=== PATIENT | female | born 1990 | race Caucasian/White ===

== ENCOUNTER 2020-05-08 15:04 | Outpatient (REF) | payer OTHER, SELFPAY ==
[2020-05-09 09:01] LABS: BV Int Neg Control Negative (Negative); BV Int Pos Control Positive (Positive)
[2020-05-09 10:27] LABS: C. trachomatis RNA TMA NOT DETECTED (NOT DETECTED); N. gonorrhoeae RNA TMA NOT DETECTED (NOT DETECTED)
== END 2020-05-08 15:05 | disposition home or self-care (01) ==
LOC: HO.LAB 15:04
PROVIDERS: PCP Internal Medicine; Visit Provider Obstetrics & Gynecology
DX: R87.612 Low grade squamous intraepithelial lesion on cytologic smear of cervix (LGSIL) (principal); R87.810 Cervical high risk human papillomavirus (HPV) DNA test positive
CPT/HCPCS: 36415; 57454; 87480; 87491; 87510; 87591; 87660; 88305

== ENCOUNTER 2020-09-14 12:08 | Outpatient (REF) | payer OTHER, SELFPAY ==
[2020-09-16 08:32] LABS: ~Hepatitis B Surface Antibody REACTIVE (Nonreactive)
[2020-09-16 17:52] LABS: Rubella IgG Antibody 6.07 Index
== END 2020-09-14 12:09 | disposition home or self-care (01) ==
LOC: HO.HMGCLDS 12:08
PROVIDERS: PCP Internal Medicine; Visit Provider Internal Medicine
DX: Z00.00 Encounter for general adult medical examination without abnormal findings (principal)
CPT/HCPCS: 36415; 86706; 86735; 86762; 86765; 86787

== ENCOUNTER 2020-09-16 09:03 | Outpatient (REF) | payer OTHER, SELFPAY ==
[2020-09-19 18:52] LABS: TS Negative Control Passed; TS Panel A 0; TS Panel B 0; TS Positive Control Passed; TSpotTB Negative (SeeBelow)
== END 2020-09-16 09:04 | disposition home or self-care (01) ==
LOC: HO.HMGCLDS 09:03
PROVIDERS: PCP Internal Medicine; Visit Provider Internal Medicine
DX: Z11.1 Encounter for screening for respiratory tuberculosis (principal)
CPT/HCPCS: 36415; 86481

== ENCOUNTER → 2022-04-29 07:49 | Outpatient (REF) | payer OTHER, SELFPAY ==
--- NOTE | 2022-04-29 07:56 | HM_ITS ---
Conclusion: 1. Patient was monitored for total period of 5 days and 6 hours 2. Baseline was normal sinus rhythm with average heart of 78 beats per minute 3. Rare PVCs noted. 4. Patient marked 1 event without any correlating symptoms correlating with sinus rhythm. MTDD
== END ==
LOC: HO.CARD 07:49
PROVIDERS: PCP Internal Medicine; Visit Provider Nurse Practitioner Family
DX: R00.2 Palpitations (principal)
CPT/HCPCS: 93242

== ENCOUNTER 2022-05-12 15:20 | Outpatient (REF) | payer OTHER, SELFPAY ==
[2022-05-12 17:29] LABS: Influenza A PCR NEGATIVE (Negative); Influenza B PCR NEGATIVE (Negative); Resp Syncy Virus RNA Qual PCR NEGATIVE (Negative); SARS COV2 PCR INHOUSE POSITIVE (Negative)
== END 2022-05-12 15:21 | disposition home or self-care (01) ==
LOC: HO.LAB 15:20
PROVIDERS: Visit Provider Physician Assistant
DX: Z20.822 Contact with and (suspected) exposure to COVID-19 (principal); R09.89 Other specified symptoms and signs involving the circulatory and respiratory systems
CPT/HCPCS: 0241U

== ENCOUNTER → 2022-08-17 12:46 | Outpatient (REF) | payer OTHER, SELFPAY ==
--- NOTE | 2022-08-17 12:49 | CA_ITS ---
Acquisition Time: 2022-08-17 13:44:34 Total Exercise Time: 00:05:14 Test Indications: Dyspnea CP Medications: ALBUTEROL ZYRTEC Protocol: FARIDA Max HR: 169 BPM 88% of Pred: 191 BPM Max BP: 194/078 mmHG Max Work Load: 7.0 METS Exercise stress test exercise 5 min 14 sec of Farida protocol achieving 88% MPHR, with moderate sob, no chest discomfort, without arrythmia during exercise, with normotensive response to exercise, without EKG changes meeting criteria for ischemia. In recovery there were isolated PVCs, in a bigeminy and trigeminy pattern which resolved with 3 minutes of resting. She described that her heart was beating hard but not like the palpitations that she has experienced in the past. Her breathing improved quickly with rest. Test reviewed with Dr Valderrama Referred By: Wandy Ford Overread By: ASHLEY RO
--- NOTE | 2022-08-17 12:52 | CA_ITS ---
Transthoracic Echocardiogram Patient (Last, First, Middle): Sharmaine Hauser, Gender: Female Date of : 1990 Age: 31 Procedure Date: 08/17/2022 Procedure Type: Transthoracic Echocardiogram Location: OP Height: 170.18 cm Weight: 136.08 kg BSA: 2.40 m2 Heart Rate: bpm BP: 128 / 80 mmHg Cook Manager: Referring MD: Wandy Ford MD Symptoms: R00.2 - Palpitations Study Quality: Fair ECG Rhythm: Sinus Conclusions: - The left ventricular systolic function is normal. The calculated ejection fraction is 69% by biplane method. - No obvious valvular pathology seen on this study. Findings Left Ventricle Normal left ventricular cavity size. There is mildly increased left ventricular wall thickness. The left ventricular systolic function is normal. The calculated ejection fraction is 69% by biplane method. There is no evidence of regional wall motion abnormalities. Diastolic function is normal for age. Right Ventricle Normal right ventricular cavity size and systolic function. Atria Both atria are normal in size. Aortic Valve There is a normal trileaflet aortic valve. There is no aortic valve stenosis. There is no aortic valve regurgitation. Mitral Valve The mitral valve appears normal. There is trace mitral valve regurgitation. There is no mitral valve stenosis. Pulmonic Valve The pulmonic valve is likely normal. Tricuspid Valve Normal tricuspid valve structure. There is trace tricuspid valve regurgitation. There is no evidence of pulmonary hypertension. Great Vessels The asc aorta is normal in size. Venous The inferior vena cava is normal in size and collapses greater than 50% with inspiration. Pericardium/Pleural There is no evidence of pericardial effusion. Prior Study Comparison No prior study available for comparison. Recommendations, Care & Conclusions No obvious valvular pathology seen on this study. Measurements 2D Linear Measurements IVSd: 1.10 0.6-0.9/0.6-1.0 cm LVIDd: 4.87 3.9-5.3/4.2-5.9 cm LVIDd Index: 2.03 2.4-3.2/2.2-3.1 cm/m2 LVIDs: 2.97 2.0-3.6 cm LVPWd: 1.07 0.7-1.1 cm Ao Root: 2.40 2.1-3.5 cm LA Diam: 4.00 2.7-3.8/3.0-4.0 cm LAIDs Index: 1.67 1.5-2.3 cm/m2 LV Mass: 242.75 67-162/88-224 g LV Mass Index: 101.15 43-95/49-115 g/m2 LVOT Diam: 2.00 3.0+(-)1.3 cm 2D Systolic Function EF 4C: 65.80 >55% EF 2C: 72.00 >55% EF BiP: 69.10 >55% Mitral Valve MV Pk E: 0.87 MV PK A: 0.67 MV Decel Time: 125.00 E/A: 1.30 E'Lateral: 15.90 E'Medial: 10.40 E/E' Med: 8.40 E/E' Lat: 5.50 PHT: 37.00 MVA PHT: 5.95 Decel [place]: 6.95 Aortic Valve AoV Pk Andrei: 1.42 AoV Mn Andrei: 0.91 AoV VTI: 0.33 AoV Pk Grad: 8.00 Aov Mn Grad: 4.00 AYESHA Cont.VTI: 2.32 LVOT LVOT Pk Andrei: 1.04 LVOT Mn Andrei: 0.66 LVOT VTI: 0.25 LVOT Pk Grad: 4.00 LVOT Mn Grad: 2.00 LVOT Diam: 2.00 LVOT Area: 3.14 Diastolic Function MV Pk E: 0.87 MV Pk A: 0.67 E/A: 1.30 E'Medial: 10.40 E/E' Med: 8.40 E' Laterial: 15.90 E/E' Lat: 5.50 Right Ventricle TAPSE (mm): 29.00 Tricuspid Valve TR Pk Andrei: 1.89 TR Pk Grad: 14.00 RA Press: 3.00 RVSP: 17.00 Great Vessels Aorta Ao Root-2D: 2.40 2.0-3.7 cm Ao Asc: 2.70 2.1-3.4 cm Pulmonary Valve PV Pk Andrei: 1.12 Peak PV Grad: 5.00 Updated in Other Vendor System with Status of Final Hu Valderrama MD electronically signed on 08/18/2022 11:08:33 AM with status of Final
== END ==
LOC: HO.CARD 12:46
PROVIDERS: PCP Internal Medicine; Visit Provider Internal Medicine
DX: R07.9 Chest pain, unspecified (principal); R00.2 Palpitations; R06.02 Shortness of breath
CPT/HCPCS: 93017; 93306

== ENCOUNTER 2022-10-23 14:02 | Outpatient (AMB) | payer OTHER, SELFPAY ==
[2022-10-23 14:06] VITALS: BP 118/70; PULSE 59; O2SAT 98; BMI 48.1
--- NOTE | 2022-10-23 14:06 | MHC.PC.OV ---
Vital Signs 10/23/22 14:06 Height 5 ft 6 in Weight 298 lb BMI 48.1 BP 118/70 Blood Pressure Location Lt brachial Position Sitting Pulse 59 Pulse Source Pulse Oximeter Pulse Oximetry (%) 98 Oxygen Delivery Method Room Air Intake Visit Reasons: Follow up on FMLA paper work Intake Note: Pt is here today for a follow up visit on FMLA paper work. Allergies No Known Allergies Allergy (Verified 10/23/22 14:07) Tobacco use date assessed: 09/23/22 Dental Screening Dental Screen Date: 10/23/22 Did you have a dental visit in the last 12 months?: Yes Did you have a dental problem in the last 6 months where you did not have access to dental care?: No Was dental information given to patient?: Patient has dentist HPI Follow up on FMLA paper work HPI Details Patient presents for the follow-up of recurrent SVTs. Patient has an appointment scheduled with [facility] for ablation in December. Patient has been taking metoprolol but makes her feel tired. She has been missing day or 2 every other week of work because of not feeling well. Patient uses albuterol p.r.n. for chronic asthma. FORMERLY [facility], [facility] Medical History Amenorrhea Annual physical exam Asthma LGSIL on Pap smear of cervix Obesity Family History Mother Breast cancer Diabetes Father Hypertension Brother Substance use disorder Social History Housing: Apartment Alcohol intake: never Patient Tobacco Use Status: Never used Tobacco e-Cigarette/Vaping Use: Never Used Current occupational status: employed Sexual orientation: Straight/Heterosexual Gender identity: Female Cognitive needs: No Hearing needs: No Vision needs: No Questionnaire Thrive Questionnaire Date Thrive assessed: 04/17/22 MEHRDAD-7 AMB Questionnaire MEHRDAD-7 Date MEHRDAD - 7 assessed: 04/17/22 Source: Developed by Drs. Matt Nelson, Lelia Diehl, Zeb Rascon and colleagues, with an educational mine from [employer] Review of Systems Const All systems reviewed & are unremarkable except as noted in HPI and below Reports no additional complaints Eyes Reports no additional complaints ENT Reports no additional complaints Card Reports no additional complaints Resp Reports no additional complaints GI Reports no additional complaints Reports no additional complaints Physical exam (Primary Care) Vital Signs: Last Vital Signs Pulse 59 10/23/22 14:06 BP 118/70 10/23/22 14:06 Pulse Ox 98 10/23/22 14:06 Oxygen Delivery Method Room Air 10/23/22 14:06 BMI result Body Mass Index 48.1 Tobacco/Smoking Status: Tobacco use Status Tobacco use date assessed 09/23/22 10/23/22 14:10 Patient Tobacco Use Status Never used Tobacco 10/23/22 14:10 e-Cigarette/Vaping Use Never Used 10/23/22 14:10 Thrive Assessment: Date of Thrive Assessment Date Thrive assessed 04/17/22 10/23/22 14:10 Const General: no acute distress Neck Neck: Yes supple Resp Effort & Inspection: normal respiratory effort Auscultation: clear to auscultation bilaterally Cardio Rhythm: regular rhythm Heart sounds: S1 normal heart sound present and S2 normal heart sound present Assessment and Plan Assessment & Plan (1) SVT (supraventricular tachycardia): Code(s): I47.1 - Supraventricular tachycardia Plan: Continue metoprolol and follow-up with Cardiology. [facility] paperwork filled out (2) Asthma: Code(s): J45.909 - Unspecified asthma, uncomplicated Coding Level of Care Code Est Pt Level 3 (45248) Diagnoses SVT (supraventricular tachycardia) I47.1 Asthma J45.909
== END 2022-10-23 15:03 | disposition home or self-care (01) ==
PROVIDERS: PCP Internal Medicine; Visit Provider Internal Medicine
DX: I47.1 Supraventricular tachycardia (principal); J45.909 Unspecified asthma, uncomplicated
CPT/HCPCS: 99213

== ENCOUNTER 2022-12-03 08:58 | Outpatient (AMB) | payer OTHER, SELFPAY ==
--- NOTE | 2022-12-03 09:04 | MHC.OFFVIS ---
Intake Vital Signs 12/03/22 09:05 Height 5 ft 6 in Weight 304 lb 3.806 oz BMI 49.1 BP 120/62 Blood Pressure Location Lt brachial Position Sitting Pulse 58 Intake Visit Reasons: Palpitations Intake Note: NPV w/ EKG Cutting And Boning Supervisor Required: No Accompanied by: Self / Same As Patient Allergies No Known Allergies Allergy (Verified 12/03/22 09:06) Medication List - Last Reconciled 12/03/22 by Jesus Alberto Howard MD albuterol sulfate 90 mcg/actuation 2 puffs PO Q6H PRN albuterol sulfate 90 mcg/actuation 2 puffs inhalation Q6H PRN fluticasone propionate 110 mcg/actuation (Flovent HFA) 2 puffs inhalation BID metoprolol succinate ER 25 mg PO DAILY HPI HPI Comments History of Present Illness Details Thank you for referring Wendely in cardiology consultation today for palpitations. She has been having palpitations for the last year. Have got gradually worse. 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 One of the episodes was quite severe she was just getting of work and she started noticing severe palpitation and her smart for suggesting heart rate of to 200 beats per minute. As she was just getting of the work she waited but symptoms persisted with associated shortness of breath chest discomfort she decided to come to the emergency room. In the emergency room she was noted to be in SVT, I do not have a copy of the EKG, although she was given adenosine and she had converted to sinus rhythm. Since then she was started on metoprolol 25 mg daily and she is scheduled to see Dr. Rao on December 15. However she comes today for a cardiology consultation today as this consult was initiated many months ago because of her symptoms. In April she had undergone a 5 day Holter monitor which was negative and showed rare isolated PVCs. Subsequently had a stress test which at low workload had shown no evidence of ischemia no and evidence of exercise induced arrhythmias. Echocardiogram was benign. She came for her regular a set appointment from before. She says since starting metoprolol she feels tired. She also has burning in her eyes and is not overall tolerating metoprolol well. She is aware of the vagal maneuvers. Since ED presentation she continues to have episodes of palpitations similar to SVT but these are shorter and less intense than before. [facility]LY [facility] Medical History Amenorrhea Annual physical exam Asthma LGSIL on Pap smear of cervix Obesity Family History Mother Breast cancer Diabetes Father Hypertension Brother Substance use disorder Social History Housing: Apartment Alcohol intake: never Patient Tobacco Use Status: Never used Tobacco e-Cigarette/Vaping Use: Never Used Current occupational status: employed Sexual orientation: Straight/Heterosexual Gender identity: Female Cognitive needs: No Hearing needs: No Vision needs: No Review of Systems Const Denies chills, Denies daytime sleepiness, Denies fatigue, Denies fever(s), Denies frequent falls, Denies night sweats, Denies snoring, Denies weakness, Denies weight gain and Denies weight loss Eyes Denies loss of vision ENT Denies dizziness and Denies hearing loss Card Denies chest pain, Denies chest pain with activity, Denies syncope, Denies rapid heart rate, Denies edema, Denies claudication, Denies leg edema, Denies lightheadedness, Denies palpitations, Denies dyspnea, Denies dyspnea on exertion and Denies orthopnea Resp Denies cough, Denies excessive phlegm production, Denies dyspnea, Denies dyspnea on exertion, Denies snoring and Denies wheezing GI Denies abdominal pain, Denies hematochezia, Denies change in bowel habits, Denies change in stool character, Denies heartburn, Denies nausea and Denies vomiting Denies hematuria, Denies urinary frequency and Denies dysuria Musc Denies arthralgias, Denies muscle weakness, Denies numbness and Denies tingling Skin/Breast Denies nail changes and Denies rash Neuro Denies Abnormal speech present, Denies dizziness, Denies syncope, Denies frequent falls, Denies loss of vision, Denies memory loss, Denies numbness, Denies tingling and Denies weakness Psych Denies depression and Denies memory loss Endo Denies fatigue and Denies palpitations Aller/Immun Denies wheezing Physical Exam Vital Signs: Last Vital Signs Pulse 58 12/03/22 09:05 BP 120/62 12/03/22 09:05 BMI result Body Mass Index 49.1 Const General: cooperative, comfortable, no acute distress, alert, awake and Physically active Nutritional Appearance: obese Orientation/consciousness: patient oriented x3 Limitations: no limitations HEENT Head: Yes normocephalic and Yes atraumatic Neck Neck: Yes trachea midline, Yes supple and Yes no JVD Resp Effort & Inspection: normal respiratory effort Auscultation: clear to auscultation bilaterally Cardio Jugular venous distension: no JVD Palpation: normal PMI Rate: regular rate Rhythm: regular rhythm Heart sounds: S1 normal heart sound present, S2 normal heart sound present, no click, no gallops, no murmurs and no rubs GI Auscultation: normal bowel sounds Skin General skin exam: no rashes or lesions noted Neuro General: patient oriented x3 and no focal motor deficits Speech: No Abnormal speech present Extrem General: Yes no clubbing, cyanosis or edema Office Procedures EKG Details: EKG shows sinus bradycardia at 58 beats per minute [id number], Complete Assessment & Plan Assessment & Plan (1) SVT (supraventricular tachycardia): Code(s): I47.1 - Supraventricular tachycardia Plan: Highly symptomatic supraventricular tachycardia with hospital presentation requiring termination. She is currently on metoprolol therapy with improved symptoms but has persistent symptoms of palpitation is not tolerating metoprolol therapy with symptoms of fatigue. Also given her age I think she would best benefit from ablation. We discussed about pathophysiology of SVT and the most common type of AVNRT. Discussed with her about dual AV israel physiology. Discussed about this procedure for ablation and associated risks, benefits, alternatives. She has seen Dr. Rao in the future which would be her best option given that he could pursue this treatment option for her. Other treatment options including increasing medications was discussed. We discussed about pursuing vagal maneuvers when she has an acute episode. She understands this. Will follow up in the clinic if need be. Thank you for allowing me to partake in her care Coding Level of Care Code New Pt Level 4 (32536) Diagnoses SVT (supraventricular tachycardia) I47.1 CPT Codes EKG - CPT: [id number]-[id number], Complete ([id number])
[2022-12-03 09:05] VITALS: BP 120/62; PULSE 58; BMI 49.1
== END 2022-12-03 09:54 | disposition home or self-care (01) ==
PROVIDERS: PCP Internal Medicine; Referring Provider Internal Medicine; Visit Provider Internal Medicine Cardiovascular Disease
DX: I47.1 Supraventricular tachycardia (principal); R00.1 Bradycardia, unspecified
CPT/HCPCS: 93010; 99204

== ENCOUNTER → 2022-12-03 08:58 | Outpatient (BNVA) | payer OTHER, SELFPAY | PROVIDERS: PCP Internal Medicine; Referring Provider Internal Medicine; Visit Provider Internal Medicine Cardiovascular Disease | DX: I47.1 Supraventricular tachycardia (principal) | CPT/HCPCS: 93005 ==

== ENCOUNTER 2023-01-28 10:38 | Outpatient (AMB) | payer OTHER, SELFPAY ==
[2023-01-28 10:42] VITALS: BMI 48.7
--- NOTE | 2023-01-28 10:42 | A.OFFVIS_ITS ---
Intake VS Expanded 01/28/23 10:42 01/28/23 10:57 Height 5 ft 6 in 5 ft 6 in Weight 302 lb 0.533 oz 302 lb BMI 48.7 48.7 Intake Visit Reasons: Obesity Allergies No Known Allergies Allergy (Verified 12/03/22 09:06) HPI Nutrition Presentation Details Pt presents for MNT for obesity. The Pt was referred by Dr. Abe Ford, pcp Pt reports working from 5-9 am and then has school from 12-5 pm Meals may consist of 8-10 am : : biscuit egg/cheese/water L: chicken over rice/chipotle chicken/rip/source/cheese/lettuce/tomato, water D: same as lunch , juices/ambrose jumana fruit/d: 0 dairy: 2x/wk fish : 0x/wk salads: 3 x/wk etoh: denies smoking; denies physical activity: daily life activities ENL-Ctkvylu-Yj.Jeor Equation Height 5 ft 6 in Weight 302 lb Resting Metabolic Rate 2107.63 Calculated Activity Level Sedentary Calories Needed to Maintain Weight 2529.16 Diagnosis Nutrition problem #1 food nutri know defi As related to (etiology) #1 diagnosis As evidenced by (sign/symptom) #1 high BMI (48.7 (01/2023)) and knowledge deficit of diet Monitoring/Goals Nutrition problem monitoring level of knowledge/skill, total PRO intake, total CHO intake and weight Nutrition goal/outcome list 3 CHO foods (PROT ), wt loss 5lbs in 2 months and list 3 high fiber foods Learning/Education Readiness to learn good Stages of change preparation Educational materials provided Yes (MEAL PLANNING ) Most Recent Diabetes Results: No Data to Display PFSH Medical History Amenorrhea Annual physical exam Asthma LGSIL on Pap smear of cervix Obesity Family History Mother Breast cancer Diabetes Father Hypertension Brother Substance use disorder Social History Housing: Apartment Alcohol intake: never Patient Tobacco Use Status: Never used Tobacco e-Cigarette/Vaping Use: Never Used Current occupational status: employed Sexual orientation: Straight/Heterosexual Gender identity: Female Cognitive needs: No Hearing needs: No Vision needs: No Assessment & Plan Assessment & Plan (1) Obesity: Code(s): E66.9 - Obesity, unspecified (2) Morbid obesity with BMI of 45.0-49.9, adult: Code(s): E66.01 - Morbid (severe) obesity due to excess calories; Z68.42 - Body mass index [BMI] 45.0-49.9, adult Plan: wt:137 Est kcal needs as per MSJ: 2500 (40% carb, 30% protein/fat) Est fluid needs as per 25-30 ml/d: 3400 Est prot per day as per 1 g/kg bw: 137 Recommend fiber intake : 8-10 g per day and gradually increase to 25-28 g per day for women and 35-38 g for men or as tolerated Recommend sodium intake per day : less than 2000 mg Educated patient on: ( R = reviewed V = verbalizes understanding N/R = needs review N/A = not applicable * Food sources of carbohydrate, adequate serving sizes and its role in various health conditions: R * Differences between complex carbohydrates a simple carbohydrates, role of fiber in diet: R * Food source sof protein : R * Differences between types of fats and role in diet (mono on saturated fat fatty acids, saturated fatty acids, trans fats): R basic * Food sources of sodium in salt and healthy modifications for heart health in kidney health: NR * Vitamins and minerals: R * Healthy plate method concept: R V * Physical activity: Benefits a precaution: R Patient Instructions: Work on including lean protein at breakfast : have a yogurt with fruit see meal plan consisting of 3 meal /day and 2 snacks per day following healthy plate method practice mindful eating Coding Level of Care Code Nutr Indiv Intake (94452) Diagnoses Obesity E66.9 Morbid obesity with BMI of 45.0-49.9, adult E66.01; Z68.42 Time Spent (min) 30
[2023-02-04 21:19] VITALS: BMI 48.7
== END 2023-01-28 11:20 | disposition home or self-care (01) ==
PROVIDERS: PCP Internal Medicine; Visit Provider Dietitian, Registered
DX: E66.9 Obesity, unspecified (principal); E66.01 Morbid (severe) obesity due to excess calories; Z68.42 Body mass index [BMI] 45.0-49.9, adult

== ENCOUNTER → 2023-01-28 10:38 | Outpatient (BNVA) | payer OTHER, SELFPAY | PROVIDERS: PCP Internal Medicine; Visit Provider Dietitian, Registered | DX: E66.01 Morbid (severe) obesity due to excess calories (principal); Z68.42 Body mass index [BMI] 45.0-49.9, adult; Z71.3 Dietary counseling and surveillance | CPT/HCPCS: 97802 ==

== ENCOUNTER 2023-12-08 14:12 | Outpatient (AMB) | payer BC, SELFPAY ==
--- NOTE | 2023-12-08 14:31 | MHC.PC.OV ---
Vital Signs 12/08/23 14:32 Height 5 ft 6 in Weight 301 lb BMI 48.6 BP 120/80 Blood Pressure Location Lt brachial Position Sitting Pulse 66 Pulse Source Pulse Oximeter Pulse Oximetry (%) 98 Oxygen Delivery Method Room Air Intake Visit Reasons: PE Intake Note: Pt is here today for PE. Allergies No Known Allergies Allergy (Verified 12/08/23 14:34) Tobacco use date assessed: 12/08/23 Dental Screening Dental Screen Date: 12/08/23 Did you have a dental visit in the last 12 months?: Yes Did you have a dental problem in the last 6 months where you did not have access to dental care?: No Was dental information given to patient?: Patient has dentist HPI PE HPI Details Pt presents for PE. [facility] Medical History Obesity Annual physical exam LGSIL on Pap smear of cervix Asthma Amenorrhea Surgical History History of cardiac radiofrequency ablation (RFA) Family History Mother Breast cancer Diabetes Father Hypertension Brother Substance use disorder Social History Housing: Apartment Alcohol intake: never Patient Tobacco Use Status: Never used Tobacco e-Cigarette/Vaping Use: Never Used service: No Current occupational status: employed Sexual orientation: Straight/Heterosexual Gender identity: Female Cognitive needs: No Hearing needs: No Vision needs: No Questionnaire PHQ-9 Over the last 2 weeks, how often have you been bothered by any of the following problems? 1. Little interest or pleasure in doing things: not at all 2. Feeling down, depressed, or hopeless: not at all 3. Trouble falling or staying asleep, or sleeping too much: not at all 4. Feeling tired or having little energy: more than half the days 5. Poor appetite or overeating: not at all 6. Feeling bad about yourself - or that you are a failure or have let yourself or your family down: not at all 7. Trouble concentrating on things, such as reading the newspaper or watching television: several days 8. Moving or speaking so slowly that other people could have noticed. Or the opposite - being so fidgety or restless that you have been moving around a lot more than usual: not at all 9. Thoughts that you would be better off or of hurting yourself in some way: not at all Total score: 3 Depression Screening Interpretation: Negative Depression Screening Done: Yes 30592 - PHQ-9 Billing: Yes Source: Developed by Drs. Matt Nelson, Lelia Diehl, Zeb Rascon and colleagues, with an educational mine from [employer]. Thrive Questionnaire Date Thrive assessed: 12/08/23 I am a: Patient What is your living situation today?: I have a steady place to live Within the past 12 months, did the food you bought not last and you didn't have the money to get more?: I choose not to answer this question Within the past 12 months, did you worry whether your food would run out before you got money to buy more?: I choose not to answer this question Do you have trouble paying for medicines?: I choose not to answer this question Do you have trouble getting transportation to medical appointments?: I choose not to answer this question Do you have trouble paying your heating and electricity bill?: I choose not to answer this question Do you have trouble taking care of your child, family member or friend?: No Do you have trouble with day-to-day activities such as bathing, preparing meals, shopping, managing finances, etc.?: No Are you currently unemployed and looking for a job?: No Are you interested in more education?: I choose not to answer this question THRIVE Score: 0 AUDIT C Alcohol Use Questionnaire (AUDIT-C) 1. How often do you have a drink containing alcohol?: Monthly or less 2. How many drinks containing alcohol do you have on a typical day when you are drinking?: 1 or 2 3. How often do you have six or more drinks on one occasion?: Never Total Score: 1 MEHRDAD-7 AMB Questionnaire MEHRDAD-7 Date MEHRDAD - 7 assessed: 12/08/23 Feeling nervous, anxious, or on edge: 0 = Not at all Not being able to stop or control worryin = Not at all Worrying too much about different things: 0 = Not at all Trouble relaxin = Not at all Being so restless that it is hard to sit still: 0 = Not at all Becoming easily annoyed or irritable: 0 = Not at all Feeling afraid as if something awful might happen: 0 = Not at all Total MEHRDAD-7 score (0-4 normal; 5-9 mild; 10-14 moderate; 15-21 severe): 0 Source: Developed by Drs. Matt Nelson, Lelia Diehl, Zeb Rascon and colleagues, with an educational mine from [employer]. MEHRDAD-7 Assessment Billing MEHRDAD-7 Assessment Tool: MEHRDAD-7 Assessment 46804 Review of Systems Const All systems reviewed & are unremarkable except as noted in HPI and below Reports no additional complaints Eyes Reports no additional complaints ENT Reports no additional complaints Card Reports no additional complaints Resp Reports no additional complaints GI Reports no additional complaints Reports no additional complaints Physical exam (Primary Care) Vital Signs: Last Vital Signs Pulse 66 12/08/23 14:32 BP 120/80 12/08/23 14:32 Pulse Ox 98 12/08/23 14:32 Oxygen Delivery Method Room Air 12/08/23 14:32 BMI result Body Mass Index 48.6 Tobacco/Smoking Status: Tobacco use Status Tobacco use date assessed 12/08/23 12/08/23 14:38 Patient Tobacco Use Status Never used Tobacco 12/08/23 14:38 e-Cigarette/Vaping Use Never Used 12/08/23 14:31 PHQ-9: PHQ-9 Score PHQ-9: Total score 3 12/08/23 14:38 Depression Screening Interpretation: Negative Thrive Assessment: Date of Thrive Assessment Date Thrive assessed 12/08/23 12/08/23 14:38 Const General: no acute distress HENMT Head: Yes normal to inspection General nose exam: Normal external nose present Face and sinus: Yes normal facial exam Mouth: Normal oral and palatal mucosa present Throat: Yes posterior oropharynx normal Eyes General: appearance normal, both eyes and all related structures Neck Neck: Yes no lymphadenopathy and Yes supple Resp Effort & Inspection: normal respiratory effort Auscultation: clear to auscultation bilaterally Cardio Rhythm: regular rhythm Heart sounds: S1 normal heart sound present and S2 normal heart sound present GI Inspection: Yes normal to inspection Palpation (GI): Soft to palpation Percussion: Yes normal to percussion Auscultation: normal bowel sounds Assessment and Plan Assessment & Plan (1) Annual physical exam: Code(s): Z00.00 - Encounter for general adult medical examination without abnormal findings Plan: well balanced diet, regular exercise, weight loss discussed (2) SVT (supraventricular tachycardia): Comment: s/p catheter ablation 01/2023 [facility] Code(s): I47.1 - Supraventricular tachycardia Plan: Follow-up with [facility] Cardiology. She has been taking metoprolol as needed for palpitations, once in the last 6 months (3) Morbid obesity with BMI of 45.0-49.9, adult: Code(s): E66.01 - Morbid (severe) obesity due to excess calories; Z68.42 - Body mass index [BMI] 45.0-49.9, adult Plan: Weight loss discussed with the patient. 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 GLP1 agonist treatment discussed with the patient she is not interested for now.. Orders: Orders Comprehensive [place]. Panel Fast Today E66.01 - Morbid (severe) obesity due to excess calories, I47.1 - Supraventricular tachycardia, Z00.00 - Encounter for general adult medical examination without abnormal findings, Z68.42 - Body mass index [BMI] 45.0-49.9, adult Lipid Panel Today E66.01 - Morbid (severe) obesity due to excess calories, I47.1 - Supraventricular tachycardia, Z00.00 - Encounter for general adult medical examination without abnormal findings, Z68.42 - Body mass index [BMI] 45.0-49.9, adult UA w Microscopic Today E66.01 - Morbid (severe) obesity due to excess calories, I47.1 - Supraventricular tachycardia, Z00.00 - Encounter for general adult medical examination without abnormal findings, Z68.42 - Body mass index [BMI] 45.0-49.9, adult Complete Blood Count Auto Diff Today E66.01 - Morbid (severe) obesity due to excess calories, I47.1 - Supraventricular tachycardia, Z00.00 - Encounter for general adult medical examination without abnormal findings, Z68.42 - Body mass index [BMI] 45.0-49.9, adult TSH reflex Free T4 Today E66.01 - Morbid (severe) obesity due to excess calories, I47.1 - Supraventricular tachycardia, Z00.00 - Encounter for general adult medical examination without abnormal findings, Z68.42 - Body mass index [BMI] 45.0-49.9, adult Magnesium Today E66.01 - Morbid (severe) obesity due to excess calories, I47.1 - Supraventricular tachycardia, Z00.00 - Encounter for general adult medical examination without abnormal findings, Z68.42 - Body mass index [BMI] 45.0-49.9, adult Coding Level of Care Code Est Pt Prev Care 18-39y(42690) Diagnoses Annual physical exam Z00.00 SVT (supraventricular tachycardia) I47.1 Morbid obesity with BMI of 45.0-49.9, adult E66.01; Z68.42 Additional Codes MEHRDAD-7 Assessment Billing - MEHRDAD-7 Assessment Tool: MEHRDAD-7 Assessment 37121 ([id number])
[2023-12-08 14:32] VITALS: BP 120/80; PULSE 66; O2SAT 98; BMI 48.6
== END 2023-12-08 15:31 | disposition home or self-care (01) ==
PROVIDERS: PCP Internal Medicine; Visit Provider Internal Medicine
DX: Z00.00 Encounter for general adult medical examination without abnormal findings (principal); I47.10 Supraventricular tachycardia, unspecified; E66.01 Morbid (severe) obesity due to excess calories; Z68.42 Body mass index [BMI] 45.0-49.9, adult
CPT/HCPCS: 99395

== ENCOUNTER → 2024-04-17 09:58 | Outpatient (BNVA) | payer BC, SELFPAY | PROVIDERS: PCP Internal Medicine; Visit Provider Internal Medicine ==

== ENCOUNTER 2025-01-17 09:40 | Outpatient (AMB) | payer OTHER, SELFPAY ==
--- NOTE | 2025-01-17 10:01 | A.OFFPC_ITS ---
Vital Signs 01/17/25 10:02 Height 5 ft 6 in Weight 304 lb BMI 49.1 BP 120/74 Blood Pressure Location Lt brachial Position Sitting Respiration 19 Pulse 69 Pulse Source Pulse Oximeter Temp 97.7 F Temp Source Oral Pulse Oximetry (%) 97 Oxygen Delivery Method Room Air Intake Visit Reasons: Breathing Issues Intake Note: Pt is here today for a sick visit. Pt c/o SOBand feeling of something squeezing in her throat that makes it hard to breath. Allergies No Known Allergies Allergy (Verified 01/17/25 10:33) Medication List - Last Reconciled 01/17/25 by Wandy Ford MD albuterol sulfate 90 mcg/actuation 2 puffs inhalation Q6H PRN fluticasone propion-salmeterol 100-50 mcg/dose (Advair Diskus) 1 inh inhalation BID metoprolol succinate ER 25 mg PO DAILY PRN Tobacco use date assessed: 01/17/25 Dental Screening Dental Screen Date: 01/17/25 Did you have a dental visit in the last 12 months?: No Did you have a dental problem in the last 6 months where you did not have access to dental care?: No Was dental information given to patient?: Patient declined HPI Breathing Issues HPI Details Pt c/o 6 months upper chest and throat tightness sensation, and intermittent wheezing. Pt has been using Albuterol inhaler on and off up to 4 times a week with good relief. 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 [facility] Medical History Obesity Annual physical exam LGSIL on Pap smear of cervix Asthma Amenorrhea Surgical History History of cardiac radiofrequency ablation (RFA) Family History Mother Breast cancer Diabetes Father Hypertension Brother Substance use disorder Social History Housing: Apartment Alcohol intake: never Patient Tobacco Use Status: Never used Tobacco e-Cigarette/Vaping Use: Never Used service: No Current occupational status: employed Sexual orientation: Straight/Heterosexual Gender identity: Female Cognitive needs: No Hearing needs: No Vision needs: No Questionnaire PHQ-9 Over the last 2 weeks, how often have you been bothered by any of the following problems? 1. Little interest or pleasure in doing things: not at all 2. Feeling down, depressed, or hopeless: not at all 3. Trouble falling or staying asleep, or sleeping too much: not at all 4. Feeling tired or having little energy: not at all 5. Poor appetite or overeating: not at all 6. Feeling bad about yourself - or that you are a failure or have let yourself or your family down: not at all 7. Trouble concentrating on things, such as reading the newspaper or watching television: not at all 8. Moving or speaking so slowly that other people could have noticed. Or the opposite - being so fidgety or restless that you have been moving around a lot more than usual: not at all 9. Thoughts that you would be better off or of hurting yourself in some way: not at all Total score: 0 Depression Screening Interpretation: Negative Depression Screening Done: Yes 22380 - PHQ-9 Billing: Yes Source: Developed by Drs. Matt Nelson, Lelia Diehl, Zeb Rascon and colleagues, with an educational mine from [employer]. Thrive Questionnaire Date Thrive assessed: 01/17/25 I am a: Patient What is your living situation today?: I have a steady place to live Within the past 12 months, did the food you bought not last and you didn't have the money to get more?: I choose not to answer this question Within the past 12 months, did you worry whether your food would run out before you got money to buy more?: I choose not to answer this question Do you have trouble paying for medicines?: I choose not to answer this question Do you have trouble getting transportation to medical appointments?: I choose not to answer this question Do you have trouble paying your heating and electricity bill?: I choose not to answer this question Do you have trouble taking care of your child, family member or friend?: I choose not to answer this question Do you have trouble with day-to-day activities such as bathing, preparing meals, shopping, managing finances, etc.?: I choose not to answer this question Are you currently unemployed and looking for a job?: I choose not to answer this question Are you interested in more education?: I choose not to answer this question Please select the resources that you would like help with: None Currently or been in a relationship where the following occur: I choose not to answer THRIVE Score: 0 MEHRDAD-7 AMB Questionnaire MEHRDAD-7 Date MEHRDAD - 7 assessed: 01/17/25 Feeling nervous, anxious, or on edge: 0 = Not at all Not being able to stop or control worryin = Not at all Worrying too much about different things: 0 = Not at all Trouble relaxin = Not at all Being so restless that it is hard to sit still: 0 = Not at all Becoming easily annoyed or irritable: 0 = Not at all Feeling afraid as if something awful might happen: 0 = Not at all Total MEHRDAD-7 score (0-4 normal; 5-9 mild; 10-14 moderate; 15-21 severe): 0 Source: Developed by Drs. Matt Nelson, Lelia Diehl, Zeb Rascon and colleagues, with an educational mine from [employer]. MEHRDAD-7 Assessment Billing MEHRDAD-7 Assessment Tool: MEHRDAD-7 Assessment 17018 Review of Systems Const All systems reviewed & are unremarkable except as noted in HPI and below Eyes Reports no additional complaints ENT Reports no additional complaints Card Reports no additional complaints Resp Reports no additional complaints GI Reports no additional complaints Reports no additional complaints Physical exam (Primary Care) Vital Signs: Last Vital Signs Temp 97.7 F 01/17/25 10:02 Pulse 69 01/17/25 10:02 Resp 19 01/17/25 10:02 BP 120/74 01/17/25 10:02 Pulse Ox 97 01/17/25 10:02 Oxygen Delivery Method Room Air 01/17/25 10:02 BMI result Body Mass Index 49.1 Tobacco/Smoking Status: Tobacco use Status Tobacco use date assessed 01/17/25 01/17/25 10:35 Patient Tobacco Use Status Never used Tobacco 01/17/25 10:02 e-Cigarette/Vaping Use Never Used 01/17/25 10:02 PHQ-9: PHQ-9 Score PHQ-9: Total score 0 01/17/25 11:11 Depression Screening Interpretation: Negative Thrive Assessment: Date of Thrive Assessment Date Thrive assessed 01/17/25 01/17/25 10:35 Currently or been in a relationship where the following occur: I choose not to answer Const General: no acute distress HENMT Head: Yes normal to inspection Eyes General: appearance normal, both eyes and all related structures Neck Neck: Yes supple Resp Effort & Inspection: normal respiratory effort Auscultation: clear to auscultation bilaterally Cardio Rhythm: regular rhythm Heart sounds: S1 normal heart sound present and S2 normal heart sound present Coding Level of Care Code Est Pt Level 4 (90074) Diagnoses Asthma J45.909 Sleep apnea G47.30 Additional Codes MEHRDAD-7 Assessment Billing - MEHRDAD-7 Assessment Tool: MEHRDAD-7 Assessment 96425 ([id number]) PHQ-9 - 70640 - PHQ-9 Billing: Yes ([id number]) Assessment & Plan Assessment & Plan (1) Asthma: Code(s): J45.909 - Unspecified asthma, uncomplicated Category: Medical Plan: For worsening symptoms of asthma Advair 150 twice a day will be started. Patient will continue albuterol PFTs will be scheduled (2) Sleep apnea: Comment: Witnessed sleep apnea Code(s): G47.30 - Sleep apnea, unspecified Category: Medical Plan: For witnessed sleep apnea and morbid obesity obtain sleep studies to evaluate for obstructive sleep apnea Orders: Orders PFT pulmonary function test Today J45.909 - Unspecified asthma, uncomplicated Comprehensive [place]. Panel Fast Today Z00.00 - Encounter for general adult medical examination without abnormal findings RT home sleep study Today G47.30 - Sleep apnea, unspecified Complete Blood Count Auto Diff Today Z00.00 - Encounter for general adult medical examination without abnormal findings Lipid Panel Today Z00.00 - Encounter for general adult medical examination without abnormal findings TSH reflex Free T4 Today Z00.00 - Encounter for general adult medical examination without abnormal findings UA w Microscopic Today Z00.00 - Encounter for general adult medical examination without abnormal findings Vitamin D 25-OH Total Today Z00.00 - Encounter for general adult medical examination without abnormal findings Medications: New fluticasone propion-salmeterol 100-50 mcg/dose (Advair Diskus) 1 inh inhalation BID 60 ea 3RF Refilled albuterol sulfate 90 mcg/actuation 2 puffs inhalation Q6H PRN 8.5 grams 1RF shortness of breath or wheezing
[2025-01-17 10:02] VITALS: BP 120/74; PULSE 69; RESP 19; TEMP 36.5; O2SAT 97; BMI 49.1
== END 2025-01-17 12:01 | disposition home or self-care (01) ==
LOC: HO.HMCC 09:41
PROVIDERS: PCP Internal Medicine; Visit Provider Internal Medicine
DX: J45.909 Unspecified asthma, uncomplicated (principal); G47.30 Sleep apnea, unspecified

== ENCOUNTER → 2025-01-17 09:40 | Outpatient (BNVA) | payer OTHER, SELFPAY | PROVIDERS: PCP Internal Medicine; Visit Provider Internal Medicine | DX: J45.909 Unspecified asthma, uncomplicated (principal); G47.30 Sleep apnea, unspecified; Z79.899 Other long term (current) drug therapy | CPT/HCPCS: 96127 ==